=== PATIENT | male | born 1940 | race Caucasian/White ===

== ENCOUNTER 2018-05-21 11:45 | Inpatient (IN) ==
[2018-05-21] MEDS ORDERED: Nitroglycerin 0.4 MG TAB.SUBL SL PRN (16:30)
[2018-05-21] MEDS ORDERED: Artificial Tears SOLN 15 ML BOTTLE BOTH EYES PRN (16:30)
[2018-05-21] MEDS ORDERED: Mag Hydrox/Al Hydrox/Simeth 30 ML UDC PO PRN (16:36)
[2018-05-21] MEDS ORDERED: Acetaminophen 325 MG TABLET PO PRN (16:36)
[2018-05-21] MEDS: *HR* OxyCODONE/APAP 5/325 TABLET PO PRN ×2 (17:36→21:27)
[2018-05-21] MEDS: Gabapentin 100 MG CAPSULE PO SCH (20:42)
[2018-05-21] MEDS: Lisinopril 20 MG TABLET PO SCH (20:42)
[2018-05-22 05:32] LABS: Basophils % 0.4 %; Eosinophils # 0.4 K/mcL (0.0-0.6); Eosinophils % 4.6 %; Hematocrit 27.6 % (37.5-50.1); Hemoglobin 8.9 g/dL (12.9-16.9); Lymphocytes # 1.6 K/mcL (0.6-4.6); Lymphocytes % 20.3 %; Mean Corpuscular HGB Conc 32.2 g/dL (31.6-35.5); Mean Corpuscular Hemoglobin 31.8 pg (28.0-33.3); Mean Corpuscular Volume 98.6 fL (83.0-100.0); Mean Platelet Volume 9.7 fL (9.4-12.4); Monocytes # 0.7 K/mcL (0.0-1.3); Monocytes % 9.4 %; Platelet Count 186 K/mcL (140-400); Red Cell Distribution Width 14.2 % (11.5-14.5); Segmented Neutrophils % 64.3 %
[2018-05-22] MEDS: *HR* Enoxaparin 40 MG/0.4 ML SYRINGE SQ SCH (05:41)
[2018-05-22] MEDS: *HR* OxyCODONE/APAP 5/325 TABLET PO PRN ×2 (05:41→19:48)
[2018-05-22 05:48] LABS: Albumin 3.2 g/dL (3.5-5.7); Albumin/Globulin Ratio 1.2 (1.1-2.2); Bilirubin,Total 0.7 mg/dL (0.3-1.0); Calcium 8.5 mg/dL (8.6-10.3); Globulin 2.7 g/dL (2.4-3.5); Magnesium 2.3 mg/dL (1.6-2.6); Potassium 3.9 mEq/L (3.5-5.1); Total Protein 5.9 g/dL (6.4-8.9)
[2018-05-22] MEDS: Cholecalciferol (D-3) 1,000 UNIT TABLET PO SCH (08:09)
[2018-05-22] MEDS: Lisinopril 20 MG TABLET PO SCH ×2 (08:10→19:47)
[2018-05-22] MEDS: Aspirin 81 MG TAB.CHEW PO SCH (08:10)
[2018-05-22] MEDS: Gabapentin 100 MG CAPSULE PO SCH ×2 (08:10→16:22)
[2018-05-22] MEDS: Fluticasone Propionate Nasal 50 MCG/SPRAY BOTTLE NS SCH (08:12)
--- NOTE | 2018-05-22 11:21 | Internal Med History&Physical ---
Addendum entered and electronically signed by Austin Oneil MD 05/23/18 11:31: It should be noted that the patient has a grade 2/6 systolic ejection murmur heard at left sternal border. Addendum entered and electronically signed by Austin Oneil MD 05/23/18 10:02: I have personally performed a face to face evaluation on this patient. I have reviewed and agree with the care plan. History and Exam by me shows: The patient was evaluated by me yesterday but the note was not complete. This documentation is being completed today for that reason. History and physical were reviewed with patient and with nurse practitioner. Details provided to her. Patient is one-week status post CABG 2 at [facility]. He has had no complications and doing well except has difficulty learning how to arise from a seated position and how to do things with arm strength limited because of his sternotomy. Patient has no complaint of chest discomfort, dyspnea, orthopnea, breathing problems, palpitations, nausea or vomiting, constipation or diarrhea, other changes in bowel habits, heartburn, difficulty with urination, kidney problems or kidney stones, fevers chills or sweats, rash or itching, seizures, headache or lightheadedness, heat or cold intolerance, blood problems or anemia, or other new complaints, except as mentioned above. Review of systems is otherwise negative. Examination: (Except as mentioned above): General: In no apparent distress, alert and oriented 3. Head: Atraumatic and normocephalic. Eyes: Extraocular muscles are intact, pupils equal round and reactive to light and accommodation. Sclerae anicteric. Ears: External ears are normal to inspection and hearing is grossly normal. Nose: Patent without lesion noted. Mouth: No intraoral lesions seen. Patient has many maxillary teeth which are missing as well as gingival retraction consistent with long-standing gingivitis. Neck: Supple with trachea midline. There is no thyromegaly or adenopathy and carotids are 2+ without bruit heard. Respiratory: No use of accessory muscles. Lungs are clear throughout. Normal airflow. Cardiovascular: Regular rate and rhythm without murmur appreciated. Abdomen: Bowel sounds are normal. No hepatosplenomegaly masses or tenderness. Obese and therefore difficult to palpate deeply. Extremities: No cyanosis clubbing or edema. Neurological: A and O 3. Cranial nerves II through XII are intact. No focal deficits and no abnormal movements or postures. Skin: Warm and non-diaphoretic with no lesions noted. Sternotomy wound and drainage tube wounds are well healed and nontender without erythema surrounding. Breasts, pelvic and rectal: Not examined. We will proceed with therapies, focusing on activities of daily living and safety training. Original Note: Date of Encounter: 05/22/18 Time of Encounter: 11:19 Assessment and Plan (1) S/P CABG x 2 Current visit: Yes Status: Acute Denies chest pain. Continue PT and OT. Will follow progress. Follow sternal precautions. Follow up with cardiology as scheduled. (2) Hypertension Current visit: Yes Status: Acute Controlled with current medication. Monitor blood pressure. Qualifiers: Hypertension type: essential hypertension Qualified Code(s): I10 - Esse ntial (primary) hypertension (3) History of kidney cancer Current visit: Yes Status: Chronic History of right nephrectomy 2010 (4) Prostate cancer Current visit: Yes Status: Chronic Prostatectomy in 1995. Internal Medicine - H&P: HPI Admitted From: Hospital to Hospital Transfer Plans for Post Hospital Care: Home History of present illness: Mr. Suarez is a 77 year old male admitted to inpatient rehab for PT, OT and medical management. Patient underwent a CABG X 2 vessels on 05/15/2018. Prior to this patient had an abnormal nuclear stress test followed by cardiac catheterization. Was found to have LVEF of 65% and moderate aortic stenosis. Patient denies pain or discomfort, shortness of breath or chest pain, fever, chills, nausea vomiting or diarrhea. Last bowel movement was prior to surgery. Has been taking Radha lacks. Denies abdominal discomfort. Past medical history includes hypertension, cancer kidney followed by a right nephrectomy in 2010, prostate cancer with prostatectomy in 1995 and right total knee replacement 2014. missing several teeth due to gingivitis. Past Med Surg Social Fam HX - Past Medical History Medical history: arthritis, cancer, coronary artery disease, DVT, hypertension Additional medical history: prostate cancer-removed. Kidney cancer (right)- removed. neuropathy. SLEEP APNEA Psychiatric history: no psych history - Past Surgical History Surgical History: cancer surgery, cataract, hip replacement, IVC Filter, orthopedic, other, other Additional surgical history: PROSTATE AND KIDNEY CANCER SURGERY. right hip replacement and. right leg surgery. IVC FILTER - Social History Smoking Status: Never smoker Smokeless Tobacco Status: No Alcohol use: none Drug use: none - Family History Father Living Status: Internal Medicine - H&P: Meds Lisinopril [Zestril] 40 mg PO QAM 04/29/15 [History] Allopurinol [Zyloprim 300 MG] 300 mg PO DAILY 05/15/18 [History] Amiloride/Hydrochlorothiazide [Amiloride HCl-Hctz 5-50 mg Tab] 1 tab PO DAILY 05/15/18 [History] Aspirin 81 mg PO DAILY 05/15/18 [History] Cholecalciferol (Vitamin D3) [Vitamin D3] 2,000 unit PO DAILY 05/15/18 [History] Fluticasone Propionate Nasal [Flonase] 1 spray NS DAILY 05/15/18 [History] Gabapentin [Neurontin] 100 - 300 mg PO TID 05/15/18 [History] Glycerin/Propylene Glycol [Artificial Tears Drops] 1 drop BOTH EYES DAILY PRN 05/15/18 [History] Lisinopril [Zestril] 20 mg PO QPM 05/15/18 [History] Nitroglycerin [Nitrostat] 0.4 mg SL Q5M PRN 05/15/18 [History] Atorvastatin [Lipitor] 40 mg PO HS #30 tablet 05/21/18 [Rx] Carvedilol [Coreg] 6.25 mg PO BIDWM #60 tablet 05/21/18 [Rx] OxyCODONE/APAP 5/325 [Percocet 5/325 MG] 1 each PO Q4HR PRN 7 Days #42 tablet 05/21/18 [Rx] Allergy/AdvReac Type Severity Reaction Status Date / Time adhesive tape Allergy Rash Verified 03/01/18 13:33 Diclofenac [From [employer]] Allergy swelling Verified 12/22/17 08:21 diltiazem Allergy See Verified 03/01/18 13:33 Comments Latex, Natural Rubber Allergy SEE COMMENT Verified 12/22/17 08:21 misoprostol [From [employer]] Allergy swelling Verified 12/22/17 08:21 nabumetone Allergy See Verified 12/22/17 08:21 Comments NSAIDS (Non-Steroidal Allergy See Verified 05/15/18 06:36 Anti-Inflamma Comments All Systems PM: A 10-system review of systems was performed and is negative for pertinent findings except as documented above in the HPI. - Constitutional Constitutional: no chills, no fever(s), no night sweats - EENT Eyes: no change in vision, no discharge, no pain, no photophobia Ears: no ear discharge, no ear pain, no tinnitus Nose, mouth and throat: no dysphagia, no nasal discharge, no neck pain, no sore throat - Cardiovascular Cardiovascular ROS IM: no chest pain, no diaphoresis, no dyspnea, no lightheadedness, no palpitations, no syncope - Respiratory Respiratory: no cough, no dyspnea, no wheezing, no excessive phlegm production - Gastrointestinal Gastrointestinal: no abdominal pain, no diarrhea, no hematemesis, no hematochezia, no melena, no nausea, no vomiting - Musculoskeletal Musculoskeletal ROS IM: no numbness, no tingling - Integumentary Integumentary IM: no rash, no unusual bruising - Neurological Neurological ROS: no confusion, no convulsions, no focal weakness, no numbness, no tingling, no tremor(s) - Hematologic/Lymphatic Hematologic/Lymphatic: no easy bruising - Constitutional Vitals: Temp Pulse Resp BP Pulse Ox 98.9 F 82 16 174/74 96 05/22/18 07:00 05/22/18 07:00 05/22/18 07:00 05/22/18 07:00 05/22/18 07:00 General appearance: Present: cooperative, A&O X 3, pleasant, no acute distress, answers questions appropriately - Head Head exam: Present: atraumatic, normocephalic - Eye Eye exam: Present: PERRL, conjuntiva pink, sclera anicteric Pupils: Present: PERRL - Neck Neck exam general surgery: Present: supple, trachea midline. Absent: lymphadenopathy - Respiratory Respiratory exam: Present: CTAB. Absent: accessory muscle use, rales, rhonchi, wheezes - Cardiovascular Cardiovascular exam: Present: RRR, +S1, +S2. Absent: diastolic murmur, gallop, rubs, systolic murmur - GI/Abdominal GI/Abdominal exam: Present: normal bowel sounds, soft, no peritoneal signs. Absent: distended, tenderness - Extremities Exam Extremities exam: Present: warm, radial pulses palpable and symmetrical. Absent: calf tenderness, cyanotic, pedal edema Additional comments: trace nonpitting pedal edema. - Incison Comments: sternal incision well approximated. no drainage. LLE small incisions X2, healing, no drainage or sign of infection. - Neurological Exam Neurological exam: Present: CN II-XII intact, oriented X3, no focal deficits. Absent: pronater drift, facial droop, speech deficit - Skin Skin exam: Present: dry, intact Internal Med - H&P Results - Labs CBC & Chem 7: 05/22/18 05:25 05/22/18 05:25 Labs: Short CBC 05/22/18 Range/Units 05:25 WBC 7.8 (4.3-11.1) K/mcL Hgb 8.9 L (12.9-16.9) g/dL Hct 27.6 L (37.5-50.1) % Plt Count 186 (140-400) K/mcL Neutrophils # 5.0 (1.6-8.9) K/mcL BMP 05/22/18 05:25 Sodium 136 Potassium 3.9 Chloride 101 Carbon Dioxide 30 H BUN 28 H Creatinine 1.39 H Glucose 108 H Calcium 8.5 L Liver Function 05/22/18 Range/Units 05:25 Total Bilirubin 0.7 (0.3-1.0) mg/dL AST 32 (13-39) Units/L ALT 24 (7-52) Units/L Alkaline Phosphatase 56 (34-104) Units/L Albumin 3.2 L (3.5-5.7) g/dL
[2018-05-22] MEDS: Pregabalin 25 MG CAPSULE PO SCH (19:48)
[2018-05-23] MEDS: *HR* Enoxaparin 40 MG/0.4 ML SYRINGE SQ SCH (04:52)
[2018-05-23] MEDS: *HR* OxyCODONE/APAP 5/325 TABLET PO PRN ×2 (04:52→20:13)
[2018-05-23] MEDS: Lisinopril 20 MG TABLET PO SCH ×2 (08:31→20:13)
[2018-05-23] MEDS: Aspirin 81 MG TAB.CHEW PO SCH (08:31)
[2018-05-23] MEDS: Cholecalciferol (D-3) 1,000 UNIT TABLET PO SCH (08:31)
[2018-05-23] MEDS: Fluticasone Propionate Nasal 50 MCG/SPRAY BOTTLE NS SCH (08:32)
[2018-05-23] MEDS: Pregabalin 25 MG CAPSULE PO SCH ×3 (11:18→20:12)
--- NOTE | 2018-05-23 11:24 | Internal Med Progress Note ---
Addendum entered and electronically signed by Austin Oneil MD 05/23/18 11:30: I have personally performed a face to face evaluation on this patient. I have r eviewed and agree with the care plan. History and Exam by me shows: Patient is without complaint except for constipation. He is still not moved his bowels. He received a half a dose of magnesium citrate, last evening. If he has not had a problem as they have goes on he agrees to another half dose. He still has pain with cough but motion is improving. Discussed care with other providers and/or nursing. Patient has no complaint of chest discomfort, dyspnea, orthopnea, palpitations, nausea or vomiting, constipation or diarrhea, other changes in bowel habits, difficulty with urination, rash or itching, or other new complaints, except as mentioned above. Review of systems is otherwise negative. Examination: (Except as mentioned above): General: In no apparent distress. Alert and oriented 3. Nondiaphoretic. Head: Atraumatic and normocephalic. Respiratory: No use of accessory muscles. Lungs are clear throughout. Normal airflow. Cardiovascular: Regular rate and rhythm without a change in his murmur appreciated. Abdomen: Bowel sounds are normal. No hepatosplenomegaly mass or tenderness appreciated. Obese and therefore difficult to palpate deeply. Patient is examined upright in chair and this also limits exam. Extremities: No cyanosis clubbing or edema. Skin: Warm and non-diaphoretic with no new lesions noted. Original Note: Date of Encounter: 05/23/18 Time of Encounter: 11:22 - Assessment and plan (1) S/P CABG x 2 Current Visit: Yes Status: Acute Assessment and plan: Patient with no current issues. Patient has been progressing well with physical therapy and ambulating with assistance with walker. Midline surgical incision and previous chest tube sites appear to be healing well. Left leg donor sites appear to be healing well. Patient states that his pain is well-controlled with current medications. Patient instructed on during coughing and deep breath. Will continue use of the spirometer and will continue to mobilize patient to physical therapy. (2) Hypertension Current Visit: Yes Status: Acute Assessment and plan: Vital signs stable, but occasional elevated systolic at 150-160. We will continue patient on current medications. Qualifiers: Hypertension type: essential hypertension Qualified Code(s): I10 - Essential (primary) hypertension (3) History of kidney cancer Current Visit: Yes Status: Chronic Assessment and plan: No acute issues. Patient's most recent creatinine is 1.39. We will continue with current plan of care and monitor through serial labs - Time Spent With Patient less than 15 minutes - Subjective Interval history: Patient appears relaxed currently denies any discomforts or shortness of breath. States that he has some sternal discomfort during coughing, but was instructed to splint during deep breaths and coughing. States that his pain has been well- controlled with current pain medications. Patient states that he has been using his spirometer. - Constitutional Vitals: Temp Pulse Resp BP Pulse Ox 98.1 F 83 14 136/74 95 05/23/18 08:17 05/23/18 08:17 05/23/18 08:17 05/23/18 08:17 05/23/18 08:17 General appearance: Present: cooperative, A&O X 3, pleasant, no acute distress, answers questions appropriately - Head Head exam: Present: atraumatic, normocephalic - Eye Eye exam: Present: PERRL, conjuntiva pink, sclera anicteric Pupils: Present: PERRL - Neck Neck exam general surgery: Present: supple, trachea midline. Absent: lymphadenopathy - Respiratory Respiratory exam: Present: CTAB. Absent: accessory muscle use, rales, rhonchi, wheezes Additional comments: Lungs are clear throughout with diminished basilar raymond. Sclerae effort appears relaxed. No productive cough noted. - Cardiovascular Cardiovascular exam: Present: RRR, +S1, +S2. Absent: diastolic murmur, gallop, rubs, systolic murmur Additional comments: Patient has a midline chest incision which is dry and intact and appears to be healing well. Patient had several small wounds from previous chest tube sites which appears to be healing well. - GI/Abdominal GI/Abdominal exam: Present: normal bowel sounds, soft, no peritoneal signs. Absent: distended, tenderness - Extremities Exam Extremities exam: Present: warm, radial pulses palpable and symmetrical. Absent : calf tenderness, cyanotic, pedal edema Additional comments: Patient went to small incisions to left leg to donor sites which appear healthy and healing well. - Neurological Exam Neurological exam: Present: CN II-XII intact, oriented X3, no focal deficits. Absent: pronater drift, facial droop, speech deficit - Skin Skin exam: Present: dry, intact Internal Medicine: Result - Labs CBC & Chem 7: 05/22/18 05:25 05/22/18 05:25 Consult Discharge Plan - Plan Referrals: Tammy Reaves MD [Primary Care Provider] -
[2018-05-24] MEDS: *HR* OxyCODONE/APAP 5/325 TABLET PO PRN ×3 (00:18→21:18)
[2018-05-24] MEDS: *HR* Enoxaparin 40 MG/0.4 ML SYRINGE SQ SCH (05:03)
[2018-05-24] MEDS: Aspirin 81 MG TAB.CHEW PO SCH (07:43)
[2018-05-24] MEDS: Pregabalin 25 MG CAPSULE PO SCH ×2 (07:43→21:17)
[2018-05-24] MEDS: Lisinopril 20 MG TABLET PO SCH ×2 (07:43→21:17)
[2018-05-24] MEDS: Cholecalciferol (D-3) 1,000 UNIT TABLET PO SCH (07:43)
[2018-05-24] MEDS: Fluticasone Propionate Nasal 50 MCG/SPRAY BOTTLE NS SCH (08:38)
--- NOTE | 2018-05-24 10:11 | Internal Med Progress Note ---
Addendum entered and electronically signed by Austin Oneil MD 05/24/18 12:09: I have personally performed a face to face evaluation on this patient. I have r eviewed and agree with the care plan. History and Exam by me shows: Patient is without complaint but notes that he has not had a bowel movement, yet. His had a dose of MiraLAX and have dose of magnesium citrate. We discussed this and agreed to use magnesium citrate, again. He denies abdominal pain. His been no nausea or other problem associated. Discussed care with other providers and/or nursing. Patient has no complaint of chest discomfort, dyspnea, orthopnea, palpitations, nausea or vomiting, constipation or diarrhea, other changes in bowel habits, difficulty with urination, rash or itching, or other new complaints, except as mentioned above. Review of systems is otherwise negative. Examination: (Except as mentioned above): General: In no apparent distress. Alert and oriented 3. Nondiaphoretic. Head: Atraumatic and normocephalic. Respiratory: No use of accessory muscles. Lungs are clear throughout. Normal airflow. Cardiovascular: Regular rate and rhythm without change in his baseline murmur appreciated. Abdomen: Bowel sounds are normal. No hepatosplenomegaly mass or tenderness appreciated. Obese and therefore difficult to palpate deeply. Patient is examined upright in chair and this also limits exam. Extremities: No cyanosis clubbing or change in edema. Skin: Warm and non-diaphoretic with no new lesions noted. His discharge has been held because of difficulties with bed mobility and transfers. This (potential discharge) will be reassessed on Monday. Original Note: Date of Encounter: 05/24/18 Time of Encounter: 10:04 - Assessment and plan (1) S/P CABG x 2 Current Visit: Yes Status: Acute Assessment and plan: Patient with no current issues. Patient has been progressing well with physical therapy and ambulating with assistance with walker. Midline surgical incision and previous chest tube sites appear to be healing well. Left leg donor sites appear to be healing well. Patient states that his pain is well-controlled with current medications. Will continue use of the spirometer and will continue to mobilize patient to physical therapy. (2) Hypertension Current Visit: Yes Status: Acute Assessment and plan: Vital signs stable, but occasional elevated systolic at 150-160. We will continue patient on current medications. Qualifiers: Hypertension type: essential hypertension Qualified Code(s): I10 - Essential (primary) hypertension (3) History of kidney cancer Current Visit: Yes Status: Chronic Assessment and plan: No acute issues. Patient's most recent creatinine is 1.39. We will continue with current plan of care and monitor through serial labs (4) Constipation Current Visit: Yes Status: Acute Assessment and plan: Patient with complaints continue constipation stating he has not had a BM since last Monday. Patient has been on MiraLAX and has been giving a half bottle dose of mag citrate and a past with minimal results. Patient is currently passing flatus and his abdomen appears negative on exam. We will give patient a full bottle of mag citrate and continue with daily MiraLAX. Qualifiers: Constipation type: unspecified constipation type Qualified Code(s): K59.00 - Constipation, unspecified - Time Spent With Patient less than 15 minutes - Subjective Interval history: Patient appears relaxed currently denies any discomforts or shortness of breath. States that his pain has been well-controlled with current pain medications. P atient states that he has been using his spirometer. Patient states he continues to not have any BM since last Monday. Denies any current urge for bowel movement. She reports patient was placed on overnight oximetry with only mild desaturation. - Constitutional Vitals: Temp Pulse Resp BP Pulse Ox 97.6 F 81 16 163/73 94 05/24/18 07:51 05/24/18 07:51 05/24/18 07:51 05/24/18 07:51 05/24/18 07:51 General appearance: Present: cooperative, A&O X 3, pleasant, no acute distress, answers questions appropriately - Head Head exam: Present: atraumatic, normocephalic - Eye Eye exam: Present: PERRL, conjuntiva pink, sclera anicteric Pupils: Present: PERRL - Neck Neck exam general surgery: Present: supple, trachea midline. Absent: lymphadenopathy - Respiratory Respiratory exam: Present: decreased breath sounds, CTAB. Absent: accessory muscle use, rales, rhonchi, wheezes - Cardiovascular Cardiovascular exam: Present: RRR, +S1, +S2. Absent: diastolic murmur, gallop, rubs, systolic murmur Additional comments: Patient with midline chest surgical incision that is intact appears healthy and healing well. Patient with several small wounds to lower chest from previous chest tube sites which also remain intact and healing well - GI/Abdominal GI/Abdominal exam: Present: normal bowel sounds, soft, no peritoneal signs. Absent: distended, tenderness - Extremities Exam Extremities exam: Present: warm, radial pulses palpable and symmetrical. Absent: calf tenderness, cyanotic, pedal edema Additional comments: Left leg with 2 small donor site wounds to left lower leg and upper medial leg, which both appear healthy and intact. - Neurological Exam Neurological exam: Present: CN II-XII intact, oriented X3, no focal deficits. Absent: pronater drift, facial droop, speech deficit - Skin Skin exam: Present: dry, intact Internal Medicine: Result - Labs CBC & Chem 7: 05/22/18 05:25 05/22/18 05:25 Consult Discharge Plan - Plan Referrals: Tammy Reaves MD [Primary Care Provider] -
[2018-05-25] MEDS: *HR* OxyCODONE/APAP 5/325 TABLET PO PRN ×2 (05:28→21:10)
[2018-05-25] MEDS: *HR* Enoxaparin 40 MG/0.4 ML SYRINGE SQ SCH (05:28)
[2018-05-25] MEDS: Aspirin 81 MG TAB.CHEW PO SCH (08:23)
[2018-05-25] MEDS: Cholecalciferol (D-3) 1,000 UNIT TABLET PO SCH (08:23)
[2018-05-25] MEDS: Pregabalin 25 MG CAPSULE PO SCH ×2 (08:23→21:10)
[2018-05-25] MEDS: Fluticasone Propionate Nasal 50 MCG/SPRAY BOTTLE NS SCH (08:23)
[2018-05-25] MEDS: Lisinopril 20 MG TABLET PO SCH ×2 (08:24→21:10)
--- NOTE | 2018-05-25 10:26 | Internal Med Progress Note ---
Addendum entered and electronically signed by Joanne Hawkins 05/26/18 11:30: I have re-performed and reviewed the history documented . Original Note: Date of Encounter: 05/25/18 Time of Encounter: 10:24 - Assessment and plan (1) S/P CABG x 2 Current Visit: Yes Status: Acute Assessment and plan: continue PT and OT. will follow progress. maintain sternal precautions. f/u with cardiology as scheduled. (2) Hypertension Current Visit: Yes Status: Acute Assessment and plan: controlled. continue current meds. monitor BP. Qualifiers: Hypertension type: essential hypertension Qualified Code(s): I10 - Delgado wilkinsfarrah (primary) hypertension (3) History of kidney cancer Current Visit: Yes Status: Chronic (4) Prostate cancer Current Visit: Yes Status: Chronic - Time Spent With Patient less than 15 minutes - Subjective Interval history: participating well with therapy. having difficulty getting out of bed by self with sternal precautions. denies chest pain, fever, chills, NVD, or SOB. bowels moved yesterday. maintaining appetite and hydration. - Constitutional Vitals: Temp Pulse Resp BP Pulse Ox 97.6 F 81 18 136/71 97 05/24/18 20:25 05/24/18 20:25 05/24/18 20:25 05/24/18 20:25 05/24/18 20:25 General appearance: Present: cooperative, A&O X 3, pleasant, no acute distress, answers questions appropriately - Head Head exam: Present: atraumatic, normocephalic - Eye Eye exam: Present: PERRL, conjuntiva pink, sclera anicteric Pupils: Present: PERRL - Neck Neck exam general surgery: Present: supple, trachea midline. Absent: lymphadenopathy - Respiratory Respiratory exam: Present: CTAB. Absent: accessory muscle use, rales, rhonchi, wheezes - Cardiovascular Cardiovascular exam: Present: RRR, +S1, +S2. Absent: diastolic murmur, gallop, rubs, systolic murmur - GI/Abdominal GI/Abdominal exam: Present: normal bowel sounds, soft, no peritoneal signs. Absent: distended, tenderness - Extremities Exam Extremities exam: Present: warm, radial pulses palpable and symmetrical. Absent: calf tenderness, cyanotic, pedal edema - Incison Comments: sternal incision healing. - Neurological Exam Neurological exam: Present: CN II-XII intact, oriented X3, no focal deficits. Absent: pronater drift, facial droop, speech deficit - Skin Skin exam: Present: dry, intact Internal Medicine: Result - Labs CBC & Chem 7: 05/22/18 05:25 05/22/18 05:25 Consult Discharge Plan - Plan Referrals: Tammy Reaves MD [Primary Care Provider] -
[2018-05-25] MEDS: Famotidine 20 MG TABLET PO SCH (11:49)
[2018-05-26 05:54] LABS: Hematocrit 27.7 % (37.5-50.1); Hemoglobin 8.9 g/dL (12.9-16.9); Mean Corpuscular HGB Conc 32.1 g/dL (31.6-35.5); Mean Corpuscular Hemoglobin 31.8 pg (28.0-33.3); Mean Corpuscular Volume 98.9 fL (83.0-100.0); Red Cell Distribution Width 14.2 % (11.5-14.5)
[2018-05-26 05:57] LABS: Platelet Count 288 K/mcL (140-400)
[2018-05-26] MEDS: *HR* Enoxaparin 40 MG/0.4 ML SYRINGE SQ SCH (06:10)
[2018-05-26 06:11] LABS: Calcium 8.8 mg/dL (8.6-10.3); Potassium 4.7 mEq/L (3.5-5.1)
[2018-05-26] MEDS: *HR* OxyCODONE/APAP 5/325 TABLET PO PRN ×2 (06:11→20:15)
[2018-05-26] MEDS: Fluticasone Propionate Nasal 50 MCG/SPRAY BOTTLE NS SCH (07:56)
[2018-05-26] MEDS: Lisinopril 20 MG TABLET PO SCH ×2 (07:57→20:15)
[2018-05-26] MEDS: Pregabalin 25 MG CAPSULE PO SCH ×2 (07:57→20:15)
[2018-05-26] MEDS: Aspirin 81 MG TAB.CHEW PO SCH (07:57)
[2018-05-26] MEDS: Famotidine 20 MG TABLET PO SCH (07:57)
[2018-05-26] MEDS: Cholecalciferol (D-3) 1,000 UNIT TABLET PO SCH (07:57)
--- NOTE | 2018-05-26 11:31 | Internal Med Progress Note ---
Date of Encounter: 05/26/18 Time of Encounter: 11:10 - Subjective Interval history: - Assessment and plan (1) S/P CABG x 2 Current Visit: Yes Status: Acute Assessment and plan: continue PT and OT. will follow progress. maintain sternal precautions. start cleaning area of lower chest incision, and protect with gauze. f/u with cardiology as scheduled. He has severe dental dz will treat gums with chlorhexadine rinse he needs dental follow up as outpt (2) Iron DEF ANEMIA symptomatic cold sob on exertion no active bleed will start oral iron with GI prophylaxis (3) Hypertension Current Visit: Yes Status: Acute Assessment and plan: controlled. continue current meds. monitor BP. Qualifiers: Hypertension type: essential hypertension Qualified Code(s): I10 - Essential (primary) hypertension (3) History of kidney cancer Current Visit: Yes Status: Chronic (4) Prostate cancer Current Visit: Yes Status: Chronic - Time Spent With Patient less than 20 minutes - Subjective Interval history: HE does complain of feeling cold easily he is alert HE is using walker, is getting some SOB with exertion but no CP no wheeze participating well with therapy. no fever, chills, maintaining appetite and hydration. EXAM General appearance: Present: pleasant WM cooperative, A&O X 3, pleasant, no acute distress, answers questions appropriately - Head Head exam: Present: atraumatic, normocephalic Oral exam shows multiple dental cavities, a few missing teeth , and pale gums - Eye Eye exam: Present: PERRL, conjuntiva pale pink, sclera anicteric Pupils: Present: PERRL - Neck Neck exam general surgery: Present: supple, trachea midline. Absent: lymphadenopathy - Respiratory Respiratory exam: Present: CTAB. Absent: accessory muscle use, rales, rhonchi, wheezes - Cardiovascular Cardiovascular exam: Present: RRR, +S1, +S2. Absent: diastolic murmur, gallop, rubs, systolic murmur - GI/Abdominal GI/Abdominal exam: Present: normal bowel sounds, soft, no peritoneal signs. Absent: distended, tenderness - Extremities Exam Extremities exam: Present: warm, radial pulses palpable and symmetrical. nailbeds are pale. Cap refill good. Absent: calf tenderness, pedal edema - Incison Comments: sternal incision healing. - Neurological Exam Neurological exam: Present: CN II-XII intact, oriented X3, no focal deficits. Absent: pronater drift, facial droop, speech deficit - Skin Skin exam: Present: chest skin = Vertical long incision dry and intact with small amt crust - no bleeding. healing hematoma soft , 3 small healing escars at bottom of area where his drains were placed and removed. mild tender. no bleeding. - Constitutional Vitals: Temp Pulse Resp BP Pulse Ox 98.4 F 76 16 103/55 95 05/26/18 07:40 05/26/18 07:40 05/26/18 07:40 05/26/18 07:40 05/26/18 07:40 Internal Medicine: Result - Labs CBC & Chem 7: 05/26/18 05:45 05/26/18 05:45 Labs: Short CBC 05/26/18 Range/Units 05:45 WBC 8.1 (4.3-11.1) K/mcL Hgb 8.9 L (12.9-16.9) g/dL Hct 27.7 L (37.5-50.1) % Plt Count 288 D (140-400) K/mcL BMP 05/26/18 05:45 Sodium 136 Potassium 4.7 Chloride 102 Carbon Dioxide 29 BUN 29 H Creatinine 1.57 H Glucose 119 H Calcium 8.8 Consult Discharge Plan - Plan Referrals: Tammy Reaves MD [Primary Care Provider] -
[2018-05-27] MEDS: *HR* Enoxaparin 40 MG/0.4 ML SYRINGE SQ SCH (03:59)
[2018-05-27] MEDS: *HR* OxyCODONE/APAP 5/325 TABLET PO PRN ×2 (04:00→20:12)
[2018-05-27] MEDS: Fluticasone Propionate Nasal 50 MCG/SPRAY BOTTLE NS SCH (07:37)
[2018-05-27] MEDS: Pregabalin 25 MG CAPSULE PO SCH ×2 (07:38→20:13)
[2018-05-27] MEDS: Lisinopril 20 MG TABLET PO SCH ×2 (07:38→20:12)
[2018-05-27] MEDS: Cholecalciferol (D-3) 1,000 UNIT TABLET PO SCH (07:39)
[2018-05-27] MEDS: Aspirin 81 MG TAB.CHEW PO SCH (07:39)
[2018-05-27] MEDS: Famotidine 20 MG TABLET PO SCH (07:46)
[2018-05-27] MEDS ORDERED: Iron Sucrose Complex 250 MG in 0.9 % Sodium Chloride 250 ML IVPB SCH (12:00)
[2018-05-27] MEDS: Multivit/Ca/Min/Fe/FA 1 TAB TABLET PO SCH (12:58)
[2018-05-27] MEDS: Ascorbic Acid 500 MG TABLET PO SCH ×2 (12:58→20:12)
[2018-05-27] MEDS: Chlorhexidine Rinse 15 ML MOUTHWASH MM SCH ×2 (12:58→20:13)
--- NOTE | 2018-05-27 13:31 | Internal Med Progress Note ---
Date of Encounter: 05/27/18 Time of Encounter: 01:40 - Subjective Interval history: - Assessment and plan (1) S/P CABG x 2 Current Visit: Yes Status: Acute Assessment and plan: continue PT and OT. will follow progress. maintain sternal precautions. start cleaning area of lower chest incision, and protect with gauze. f/u with cardiology as scheduled. He has severe dental dz will treat gums with chlorhexadine rinse he needs dental follow up as outpt (2) Iron DEF ANEMIA symptomatic cold sob on exertion no active bleed will start oral iron with GI prophylaxis (3) Hypertension Current Visit: Yes Status: Acute Assessment and plan: controlled. continue current meds. monitor BP. Qualifiers: Hypertension type: essential hypertension Qualified Code(s): I10 - Essential (primary) hypertension (3) History of kidney cancer Current Visit: Yes Status: Chronic (4) Prostate cancer Current Visit: Yes Status: Chronic - Time Spent With Patient less than 20 minutes - Subjective Interval history: HE does complain of feeling cold easily he is alert HE is using walker, is getting some SOB with exertion but no CP no wheeze participating well with therapy. no fever, chills, maintaining appetite and hydration. EXAM General appearance: Present: pleasant WM cooperative, A&O X 3, pleasant, no acute distress, answers questions appropriately - Head Head exam: Present: atraumatic, normocephalic Oral exam shows multiple dental cavities, a few missing teeth , and pale gums - Eye Eye exam: Present: PERRL, conjuntiva pale pink, sclera anicteric Pupils: Present: PERRL - Neck Neck exam general surgery: Present: supple, trachea midline. Absent: lymphadenopathy - Respiratory Respiratory exam: Present: CTAB. Absent: accessory muscle use, rales, rhonchi, wheezes - Cardiovascular Cardiovascular exam: Present: RRR, +S1, +S2. Absent: diastolic murmur, gallop, rubs, systolic murmur - GI/Abdominal GI/Abdominal exam: Present: normal bowel sounds, soft, no peritoneal signs. Absent: distended, tenderness - Extremities Exam Extremities exam: Present: warm, radial pulses palpable and symmetrical. nailbeds are pale. Cap refill good. Absent: calf tenderness, pedal edema - Incison Comments: sternal incision healing. - Neurological Exam Neurological exam: Present: CN II-XII intact, oriented X3, no focal deficits. Absent: pronater drift, facial droop, speech deficit - Skin Skin exam: Present: chest skin = Vertical long incision dry and intact with small amt crust - no bleeding. healing hematoma soft , 3 small healing escars at bottom of area where his drains were placed and removed. mild tender. no bleeding. - Constitutional Vitals: Temp Pulse Resp BP Pulse Ox 98.1 F 78 18 147/72 96 05/27/18 07:24 05/27/18 07:24 05/27/18 07:24 05/27/18 07:24 05/27/18 07:24 General appearance: Present: cooperative, A&O X 3, pleasant, no acute distress, answers questions appropriately Internal Medicine: Result - Labs CBC & Chem 7: 05/26/18 05:45 05/26/18 05:45 Consult Discharge Plan - Plan Referrals: Tammy Reaves MD [Primary Care Provider] -
[2018-05-27] MEDS: Lactobacillus 1 EACH CAP.SPRINK PO SCH (20:12)
[2018-05-28] MEDS: *HR* Enoxaparin 40 MG/0.4 ML SYRINGE SQ SCH (05:19)
[2018-05-28 06:49] LABS: Basophils # 0.1 K/mcL (0.0-0.2); Basophils % 0.6 %; Eosinophils # 0.4 K/mcL (0.0-0.6); Hematocrit 28.2 % (37.5-50.1); Lymphocytes # 1.5 K/mcL (0.6-4.6); Lymphocytes % 17.4 %; Mean Corpuscular HGB Conc 31.9 g/dL (31.6-35.5); Mean Corpuscular Hemoglobin 31.4 pg (28.0-33.3); Mean Corpuscular Volume 98.3 fL (83.0-100.0); Mean Platelet Volume 9.3 fL (9.4-12.4); Monocytes # 0.6 K/mcL (0.0-1.3); Monocytes % 6.9 %; Neutrophils # 5.9 K/mcL (1.6-8.9); Platelet Count 337 K/mcL (140-400); Red Blood Count 2.87 M/mcL (4.19-5.50); Red Cell Distribution Width 14.1 % (11.5-14.5); Segmented Neutrophils % 69.1 %
[2018-05-28 07:00] LABS: INR 1.2; Prothrombin Time 13.8 Seconds (9.4-12.1)
[2018-05-28 07:05] LABS: Calcium 8.8 mg/dL (8.6-10.3)
[2018-05-28 07:22] VITALS: BP 112/58
[2018-05-28] MEDS: Fluticasone Propionate Nasal 50 MCG/SPRAY BOTTLE NS SCH (07:50)
[2018-05-28] MEDS: Chlorhexidine Rinse 15 ML MOUTHWASH MM SCH (07:51)
[2018-05-28] MEDS: Multivit/Ca/Min/Fe/FA 1 TAB TABLET PO SCH (07:51)
[2018-05-28] MEDS: Lactobacillus 1 EACH CAP.SPRINK PO SCH (07:51)
[2018-05-28] MEDS: Pregabalin 25 MG CAPSULE PO SCH (07:51)
[2018-05-28] MEDS: Ascorbic Acid 500 MG TABLET PO SCH (07:51)
[2018-05-28] MEDS: Aspirin 81 MG TAB.CHEW PO SCH (07:51)
[2018-05-28] MEDS: Cholecalciferol (D-3) 1,000 UNIT TABLET PO SCH (07:51)
[2018-05-28] MEDS: Lisinopril 20 MG TABLET PO SCH (07:52)
[2018-05-28] MEDS: Famotidine 20 MG TABLET PO SCH (07:52)
--- NOTE | 2018-05-28 10:22 | Internal Med Progress Note ---
Addendum entered and electronically signed by Austin Oneil MD 05/28/18 11:44: It should be noted that the patient had a grade 2/6 systolic ejection murmur at the left sternal border, as before. No change. Addendum entered and electronically signed by Austin Oneil MD 05/28/18 11:36: I have personally performed a face to face evaluation on this patient. I have reviewed and agree with the care plan. History and Exam by me shows: Patient without complaint. He notes some improvement in his cold intolerance since beginning his iron therapy. I suspect this is functional. I did tell him that he would need primary care follow-up with low iron and possibly looking at his stomach or intestines for loss of iron. The patient wants to go home and I informed him that we would have seen meeting around noon today and discuss his safety. Discussed care with other providers and/or nursing. Patient has no complaint of chest discomfort, dyspnea, orthopnea, palpitations, nausea or vomiting, constipation or diarrhea, other changes in bowel habits, difficulty with urination, rash or itching, or other new complaints, except as mentioned above. Review of systems is otherwise negative. Examination: (Except as mentioned above): General: In no apparent distress. Alert and oriented 3. Nondiaphoretic. Head: Atraumatic and normocephalic. Respiratory: No use of accessory muscles. Lungs are clear throughout. Normal airflow. Cardiovascular: Regular rate and rhythm without murmur appreciated. Abdomen: Bowel sounds are normal. No hepatosplenomegaly mass or tenderness appreciated. Obese and therefore difficult to palpate deeply. Patient is examined upright at bedside and this also limits exam. Extremities: No cyanosis clubbing or edema. Skin: Warm and non-diaphoretic with no new lesions noted. Original Note: Date of Encounter: 05/28/18 Time of Encounter: 10:20 - Assessment and plan (1) S/P CABG x 2 Current Visit: Yes Status: Acute Assessment and plan: Patient with no current issues. Patient has been progressing well with physical therapy and ambulating with assistance with walker. Midline surgical incision and previous chest tube sites appear to be healing well. Left leg donor sites appear to be healing well. Patient states that his pain is minimal and well- controlled with current medications. Will continue use of the spirometer and will continue to mobilize patient to physical therapy. (2) Hypertension Current Visit: Yes Status: Acute Assessment and plan: Vital signs stable and much better controlled. We will continue patient on current medications. Qualifiers: Hypertension type: essential hypertension Qualified Code(s): I10 - Essential (primary) hypertension (3) History of kidney cancer Current Visit: Yes Status: Chronic Assessment and plan: No acute issues. Patient's most recent creatinine is 1.59. We will continue with current plan of care and monitor through serial labs (4) Constipation Current Visit: Yes Status: Acute Assessment and plan: Patient with complaints continue constipation stating he has not had a BM in two days, but his norm is to go QOD . Patient has been on MiraLAX and has been giving a half bottle dose of mag citrate and a past with minimal results. Patient is currently passing flatus and his abdomen appears negative on exam. Qualifiers: Constipation type: unspecified constipation type Qualified Code(s): K59.00 - Constipation, unspecified - Time Spent With Patient less than 15 minutes - Subjective Interval history: Patient appears relaxed currently denies any discomforts or shortness of breath. States that his pain has been minimal and well-controlled with current pain medications. Patient states that he has been using his spirometer. - Constitutional Vitals: Temp Pulse Resp BP Pulse Ox 97.9 F 76 18 112/58 96 05/28/18 07:21 05/28/18 07:21 05/28/18 07:21 05/28/18 07:21 05/28/18 07:21 General appearance: Present: cooperative, A&O X 3, pleasant, no acute distress, answers questions appropriately - Head Head exam: Present: atraumatic, normocephalic - Eye Eye exam: Present: PERRL, conjuntiva pink, sclera anicteric Pupils: Present: PERRL - Neck Neck exam general surgery: Present: supple, trachea midline. Absent: lymphadenopathy - Respiratory Respiratory exam: Present: CTAB. Absent: accessory muscle use, rales, rhonchi, wheezes Additional comments: Lungs clear throughout upper [place] but noted diminished breath sounds left greater than right to posterior bases. Respiratory effort is relaxed. No productive cough. - Cardiovascular Cardiovascular exam: Present: RRR, +S1, +S2, systolic murmur. Absent: diastolic murmur, gallop, rubs Additional comments: 2/6 systolic murmur. Midline chest incision remains intact and appears healthy and healing well. Patient with 3 small chest tube incisions to the lower chest and epigastric area that remained intact and healthy. - GI/Abdominal GI/Abdominal exam: Present: normal bowel sounds, soft, no peritoneal signs. Absent: distended, tenderness - Extremities Exam Extremities exam: Present: warm, radial pulses palpable and symmetrical. Absent: calf tenderness, cyanotic, pedal edema Additional comments: Left leg with 2 small donor incisions to the medial leg and lower thigh which remained healthy and intact - Neurological Exam Neurological exam: Present: CN II-XII intact, oriented X3, no focal deficits. Absent: pronater drift, facial droop, speech deficit - Skin Skin exam: Present: dry, intact Internal Medicine: Result - Labs CBC & Chem 7: 05/28/18 06:35 05/28/18 06:35 Labs: Short CBC 05/28/18 Range/Units 06:35 WBC 8.6 (4.3-11.1) K/mcL Hgb 9.0 L (12.9-16.9) g/dL Hct 28.2 L (37.5-50.1) % Plt Count 337 (140-400) K/mcL Neutrophils # 5.9 (1.6-8.9) K/mcL BMP 05/28/18 06:35 Sodium 134 L Potassium 4.0 Chloride 102 Carbon Dioxide 27 BUN 29 H Creatinine 1.59 H Glucose 109 H Calcium 8.8 - ABG Interpretation ABG results: PT/INR, D-dimer PT 13.8 Seconds (9.4-12.1) H 05/28/18 06:35 Consult Discharge Plan - Plan Referrals: Tammy Reaves MD [Primary Care Provider] -
--- NOTE | 2018-05-28 12:38 | Discharge Summary ---
Addendum entered and electronically signed by Austin Oneil MD 05/28/18 14:12: See my progress note from earlier today. The only concern is that he desaturated. He does not want to stay for O2 qualification. He has been instructed that this could be life-threatening if not with. He will be in need of home assessment and or polysomnogram is preferred based on his past history. Would recommend that he have polysomnogram as soon as possible per clinical availability. Original Note: Date of Encounter: 05/28/18 Time of Encounter: 12:35 - Discharge Diagnosis (1) S/P CABG x 2 Priority: Primary Status: Acute Comments: Patient was admitted to this rehabilitation facility for physical therapy due to generalized weakness secondary to his coronary artery bypass surgery. Patient progressed well during his stay of facility per therapy. Patient's midline chest incision appears healthy and has been healing well. Patient's incisions at the previous chest tube sites and to his left leg donor sites, also appear healthy and intact. Patient's pain is better minimal and will control with current medications. Patient denies any chest discomforts or palpitations. Patient is to continue follow-up with cardiovascular surgeon and PCP after discharge. We will continue with current medications (2) Hypertension Priority: Secondary Status: Acute Comments: Vital signs remained stable during his stay at this facility. Patient will be discharged on current medications and follow-up with PCP and cardiology Qualifiers: Hypertension type: essential hypertension Qualified Code(s): I10 - Essential (primary) hypertension (3) History of kidney cancer Priority: Secondary Status: Chronic Comments: No acute issues during stay at this facility. His renal function remained stable during his stay. We will continue with current home medications and follow-up with PCP (4) Constipation Priority: Secondary Status: Acute Comments: Patient had constipation after his arrival. Patient's constipation resolved as he became more mobile. Qualifiers: Constipation type: unspecified constipation type Qualified Code(s): K59.00 - Constipation, unspecified Hospital course: Mr. Suarez is a 77 year old male , who admitted to inpatient rehab for PT, OT and medical management. Patient underwent a CABG X 2 vessels on 05/15/2018. Prior to this patient had an abnormal nuclear stress test followed by cardiac catheterization. Was found to have LVEF of 65% and moderate aortic stenosis. Patient's recovery while at Hospital from surgery was uneventful and he was tr ansferred to this facility for further rehabilitation due to his generalized weakness following surgery. Patient denies pain or discomfort, shortness of breath or chest pain, fever, chills, nausea vomiting or diarrhea. Patient's chest incision remains healthy and intact. Patient's additional incisions for previous chest tubes and refer left leg donor sites also remained healthy and intact. Last bowel movement was prior to surgery. Patient progressed well with physical therapy. Patient is continue physical therapy through home health services. Patient is to follow-up with his cardiovascular surgeon, cardiology and PCP after discharge Past medical history includes hypertension, cancer kidney followed by a right nephrectomy in 2010, prostate cancer with prostatectomy in 1995 and right total knee replacement 2014. - Time Spent with Patient Total time spent providing and/or coordinating discharge services: - Discharge Medications Prescriptions: No Action Lisinopril [Zestril] 40 mg PO QAM Gabapentin [Neurontin] 100 - 300 mg PO TID Allopurinol [Zyloprim 300 MG] 300 mg PO DAILY Amiloride/Hydrochlorothiazide [Amiloride HCl-Hctz 5-50 mg Tab] 1 tab PO DAILY Cholecalciferol (Vitamin D3) [Vitamin D3] 2,000 unit PO DAILY Fluticasone Propionate Nasal [Flonase] 1 spray NS DAILY Lisinopril [Zestril] 20 mg PO QPM Aspirin 81 mg PO DAILY Nitroglycerin [Nitrostat] 0.4 mg SL Q5M PRN PRN Reason: Chest Pain Glycerin/Propylene Glycol [Artificial Tears Drops] 1 drop BOTH EYES DAILY PRN PRN Reason: Dry Eyes Atorvastatin [Lipitor] 40 mg PO HS #30 tablet Carvedilol [Coreg] 6.25 mg PO BIDWM #60 tablet Home Medications: Lisinopril [Zestril] 40 mg PO QAM 04/29/15 [History] Allopurinol [Zyloprim 300 MG] 300 mg PO DAILY 05/15/18 [History] Amiloride/Hydrochlorothiazide [Amiloride HCl-Hctz 5-50 mg Tab] 1 tab PO DAILY 05/15/18 [History] Aspirin 81 mg PO DAILY 05/15/18 [History] Cholecalciferol (Vitamin D3) [Vitamin D3] 2,000 unit PO DAILY 05/15/18 [History] Fluticasone Propionate Nasal [Flonase] 1 spray NS DAILY 05/15/18 [History] Gabapentin [Neurontin] 100 - 300 mg PO TID 05/15/18 [History] Glycerin/Propylene Glycol [Artificial Tears Drops] 1 drop BOTH EYES DAILY PRN 05/15/18 [History] Lisinopril [Zestril] 20 mg PO QPM 05/15/18 [History] Nitroglycerin [Nitrostat] 0.4 mg SL Q5M PRN 05/15/18 [History] Atorvastatin [Lipitor] 40 mg PO HS #30 tablet 05/21/18 [Rx] Carvedilol [Coreg] 6.25 mg PO BIDWM #60 tablet 05/21/18 [Rx] Allergies/Adverse Reactions: Allergy/AdvReac Type Severity Reaction Status Date / Time adhesive tape Allergy Rash Verified 03/01/18 13:33 Diclofenac [From Arthrotec] Allergy swelling Verified 12/22/17 08:21 diltiazem Allergy See Verified 03/01/18 13:33 Comments Latex, Natural Rubber Allergy SEE COMMENT Verified 12/22/17 08:21 misoprostol [From Arthrotec] Allergy swelling Verified 12/22/17 08:21 nabumetone Allergy See Verified 12/22/17 08:21 Comments NSAIDS (Non-Steroidal Allergy See Verified 05/15/18 06:36 Anti-Inflamma Comments Date of admission: 05/21/18 15:35 Primary care physician: Tammy Reaves MD Consults: 05/21/18 16:26 Consult to Occupational Therapy [CONS] Routine Comment: Evaluate, develop and implement POC Reason for Consult: s/p cabg Does patient have active BEDREST order?: No Is patient medically & hemodynamically stable?: Yes Patient assessed for mobility or mobilized this visit?: No Consult to Physical Medicine/Rehab [CONS] Routine Reason for Consult: s/p cabg Call Completed: Yes Consult to Physical Therapy [CONS] Routine Comment: Evaluate, develop and implement POC Reason for Consult: s/p cabg Does patient have active BEDREST order?: No Is patient medically & hemodynamically stable?: Yes Patient assessed for mobility or mobilized this visit?: No Consult to Recreational Therapy [CONS] Routine Comment: Evaluate, develop and implement POC Consult to Arabic Professor [CONS] Routine Reason for SW Consult: s/p cabg. d/c planning Discharging clinician: Austin D Smucker - Constitutional Vitals: Temp Pulse Resp BP Pulse Ox 97.9 F 76 18 112/58 96 05/28/18 07:21 05/28/18 07:21 05/28/18 07:21 05/28/18 07:21 05/28/18 07:21 General appearance: Present: cooperative, A&O X 3, pleasant, no acute distress, answers questions appropriately - Head Head exam: Present: atraumatic, normocephalic - Eye Eye exam: Present: PERRL, conjuntiva pink, sclera anicteric Pupils: Present: PERRL - Neck Neck exam general surgery: Present: supple, trachea midline. Absent: lymphadenopathy - Respiratory Respiratory exam: Present: CTAB. Absent: accessory muscle use, rales, rhonchi, wheezes Additional comments: Lungs are clear throughout upper [place] but diminished bases. Respiratory effort appears relaxed. No productive cough noted. - Cardiovascular Cardiovascular exam: Present: RRR, +S1, +S2. Absent: diastolic murmur, gallop, rubs, systolic murmur - GI/Abdominal GI/Abdominal exam: Present: normal bowel sounds, soft, no peritoneal signs. Absent: distended, tenderness - Extremities Exam Extremities exam: Present: warm, radial pulses palpable and symmetrical. Absent: calf tenderness, cyanotic, pedal edema Additional comments: Left leg donor incisions 2 appear healthy and intact - Incison Comments: Midline chest incision appears healthy and intact. 3 small incisions to epigastric area for previous chest tube sites appear healthy and intact - Neurological Exam Neurological exam: Present: CN II-XII intact, oriented X3, no focal deficits. Absent: pronater drift, facial droop, speech deficit - Skin Skin exam: Present: dry, intact - Patient Status Disposition: Home Health Service Condition: Good Functional capacity at discharge: uses cane/walker Overall status at discharge: patient is progressing back to baseline - Discharge Instructions Follow Up With: Tammy Reaves MD [Primary Care Provider] - - Diet and Activity Activity: ambulate only with your walker, as per physical therapy, increase activity as tolerated Diet: low fat, low cholesterol, low salt diet
--- NOTE | 2018-05-28 12:45 | Physician Discharge Referral ---
Addendum entered and electronically signed by Austin Oneil MD 05/28/18 14:12: Addendum entered and electronically signed by Gael Hwang CNP 05/28/18 13:02: Patient to wear oxygen 2 LPM NC nightly and prn for dyspnea. Original Note: Home Health/Hosp Referral Info Transfer to: Home Health Provider in Charge Post Discharge: PCP - Diagnosis (1) S/P CABG x 2 Priority: Primary Status: Acute (2) Hypertension Priority: Secondary Status: Acute (3) History of kidney cancer Priority: Secondary Status: Chronic (4) Constipation Priority: Secondary Status: Acute - Respiratory Orders Smoking Cessation: Smoking cessation has been advised. For more information, call the [place] Tobacco Quit Line at 7-948-YZPX-NOW. - Diet/Nutrition Diet/Nutrition Orders: Mechanical Soft, No Added Salt (DIAZ), Cardiac - Activity Activity Orders: Up ad lita, Walker - Services Needed Following services are medically necessary services: Nursing, Physical Therapy - Transfer Medications Home Medications: Lisinopril [Zestril] 40 mg PO QAM 04/29/15 [History] Allopurinol [Zyloprim 300 MG] 300 mg PO DAILY 05/15/18 [History] Amiloride/Hydrochlorothiazide [Amiloride HCl-Hctz 5-50 mg Tab] 1 tab PO DAILY 05/15/18 [History] Aspirin 81 mg PO DAILY 05/15/18 [History] Cholecalciferol (Vitamin D3) [Vitamin D3] 2,000 unit PO DAILY 05/15/18 [History] Fluticasone Propionate Nasal [Flonase] 1 spray NS DAILY 05/15/18 [History] Gabapentin [Neurontin] 100 - 300 mg PO TID 05/15/18 [History] Glycerin/Propylene Glycol [Artificial Tears Drops] 1 drop BOTH EYES DAILY PRN 05/15/18 [History] Lisinopril [Zestril] 20 mg PO QPM 05/15/18 [History] Nitroglycerin [Nitrostat] 0.4 mg SL Q5M PRN 05/15/18 [History] Atorvastatin [Lipitor] 40 mg PO HS #30 tablet 05/21/18 [Rx] Carvedilol [Coreg] 6.25 mg PO BIDWM #60 tablet 05/21/18 [Rx] Allergies/Adverse Reactions: Allergy/AdvReac Type Severity Reaction Status Date / Time adhesive tape Allergy Rash Verified 03/01/18 13:33 Diclofenac [From Arthrotec] Allergy swelling Verified 12/22/17 08:21 diltiazem Allergy See Verified 03/01/18 13:33 Comments Latex, Natural Rubber Allergy SEE COMMENT Verified 12/22/17 08:21 misoprostol [From Arthrotec] Allergy swelling Verified 12/22/17 08:21 nabumetone Allergy See Verified 12/22/17 08:21 Comments NSAIDS (Non-Steroidal Allergy See Verified 05/15/18 06:36 Anti-Inflamma Comments Certification: Further, I certify that my clinical findings support that this patient is homebound (i.e. absences from home require considerable and taxing effort and are for medical reasons or yazidism services or infrequently or short duration when for other reasons) because: Homebound Reason: Post-surgery restriction and or conditions limit ability to leave home, Leaving home requires considerable and taxing effort due to condition Attestation: My signature below is to certify that this patient is under my care and that I, or nurse practitioner, or a physician's phys assistant working with me, has a [id number] encounter with this patient.
== END 2018-05-28 14:40 | disposition home health service (06) | DRG 950 ==
LOC: INPGRE 15:35